=== PATIENT | female | born 1990 | race Caucasian/White ===

== ENCOUNTER → 2016-08-20 22:42 | Observation (INO) ==
[2016-08-20 21:05] LABS: Bilirubin,Urine Negative (Negative); Blood,Urine Negative (Negative); Clarity,Urine Cloudy (Clear); Color,Urine Yellow (Yellow); Glucose,Urine (UA) Normal (Normal); Ketones,Urine Negative (Negative); Leukocyte Esterase,Urine Large (Negative); Nitrite,Urine Negative (Negative); PH,Urine 6.5 pH Units (5.0-8.0); Protein,Urine Negative (Neg-Trace); Specific Gravity,Urine 1.012 (1.010-1.025); Urobilinogen,Urine Normal (Normal)
[2016-08-20 21:07] LABS: Bacteria,Urine Moderate per hpf (None-Few); Hyaline Casts,Urine None Seen per lpf (None-Few); RBC,Urine 0-3 per hpf (0-3); Squamous Epithelial Cell,Urine Many per lpf (None-Few); WBC,Urine 15-30 per hpf (0-3)
--- NOTE | 2016-08-20 21:12 | OB/GYN Progress Note ---
Date of Encounter: 08/20/16 Time of Encounter: 21:04 - Assessment and Plan (1) Zofia infection of genital region Current Visit: Yes Status: Acute + zofia on wet prep. Plan for terazol cream on discharge. (2) 35 weeks gestation of Current Visit: Yes Status: Acute NST reactive. SVE closed. Discharge home with precautions and rx for terazol cream. Will call pt with GC/chlam and urine culture results if positive. (3) NST (non-stress test) reactive Current Visit: Yes Status: Acute Subjective - Subjective Interval history: 26 year-old presenting via ambulance with c/o contraction pain and discharge. She reports cramping/sharp pain in her upper abdomen that lasted 20 minutes earlier today. She states the pain is better now. SHe also reports thick , green vaginal discharge that has been present for quite a while and causes itching and burning. Good FM Antepartum ROS: movement normal, contractions, no loss of fluid, no vaginal bleeding Objective - Vital Signs Vital Signs: Intake and Output 08/20/16 08/20/16 08/20/16 07:59 15:59 23:59 Other: Weight 107.955 kg Patient Weight 08/20/16 23:59 Weight 107.955 kg - Exam FHR: category 1 FHR comments: NST reactive 150BPM Abdomen: Present: soft, gravid. Absent: tenderness Uterus: Absent: tenderness Cervical dilation: closed per RN Comments: SSE with copious amount thick, green discharge in vault. No pooling of fluid. External labia and inner thighs excoriated. Wet prep + yeast, + clue cells
[2016-08-20 21:57] LABS: Candida DNA ***DETECTED*** (Not Detect); Gardnerella DNA Not Detected (Not Detect); Trichomonas DNA Not Detected (Not Detect)
== END | disposition home or self-care (01) ==
LOC: 1NENULAB

== ENCOUNTER 2018-08-24 20:09 | Inpatient (IN) ==
[2018-08-24 21:21] LABS: Basophils # 0.1 K/mcL (0.0-0.2); Basophils % 0.6 %; Eosinophils # 0.3 K/mcL (0.0-0.6); Eosinophils % 3.2 %; Hematocrit 40.4 % (35.3-44.9); Hemoglobin 12.5 g/dL (11.5-15.4); Immature Granulocytes % 0.4 % (0-4); Lymphocytes # 2.9 K/mcL (0.6-4.6); Lymphocytes % 27.5 %; Mean Corpuscular HGB Conc 30.9 g/dL (31.6-35.5); Mean Corpuscular Hemoglobin 25.4 pg (28.0-33.3); Mean Corpuscular Volume 81.9 fL (83.0-100.0); Mean Platelet Volume 10.4 fL (9.4-12.4); Monocytes # 0.5 K/mcL (0.0-1.3); Monocytes % 4.9 %; Neutrophils # 6.7 K/mcL (1.6-8.9); Platelet Count 264 K/mcL (140-400); Red Blood Count 4.93 M/mcL (3.82-4.97); Red Cell Distribution Width 14.4 % (11.5-14.5); Segmented Neutrophils % 63.4 %
[2018-08-24 21:25] LABS: Acetaminophen < 10 mcg/mL (10-20); BUN/Creatinine Ratio 15 (6-26); Blood Urea Nitrogen 11 mg/dL (6-20); Calcium 10.3 mg/dL (8.6-10.3); Carbon Dioxide 27 mEq/L (23-29); Chloride 105 mEq/L (98-107); Ethanol < 10 mg/dL (Less than 10); Glucose 102 mg/dL (70-105); Osmolality,Calculated 292 (280-300); Potassium 4.2 mEq/L (3.5-5.1); Salicylate < 2.5 mg/dL (15.0-30.0); Sodium 141 mEq/L (136-145); eGFR For Non-African Americans > 60 (> 60)
[2018-08-24 21:31] LABS: Bilirubin,Urine Negative (Negative); Blood,Urine Negative (Negative); Clarity,Urine Cloudy (Clear); Color,Urine Yellow (Yellow); Glucose,Urine (UA) Normal (Normal); Ketones,Urine Negative (Negative); Leukocyte Esterase,Urine Small (Negative); Nitrite,Urine Negative (Negative); Protein,Urine Negative (Neg-Trace); Specific Gravity,Urine 1.016 (1.010-1.025); Urobilinogen,Urine Normal (Normal)
[2018-08-24 21:35] LABS: Bacteria,Urine Many per hpf (None-Few); Hyaline Casts,Urine Few per lpf (None-Few); Squamous Epithelial Cell,Urine Many per lpf (None-Few); WBC,Urine 15-30 per hpf (0-3)
[2018-08-24 21:40] LABS: Amphetamine Screen,Urine Negative ng/mL (Cutoff=1000); Barbiturate Screen,Urine Negative ng/mL (Cutoff=200); Benzodiazepines Screen,Urine Negative ng/mL (Cutoff=200); Cannabinoid Screen,Urine Negative ng/mL (Cutoff = 50); Cocaine Screen,Urine Negative ng/mL (Cutoff= 300); Opiate Screen,Urine Negative ng/mL (Cutoff=300); Phencyclidine Screen,Urine Negative ng/mL (Cutoff=25)
--- NOTE | 2018-08-24 22:13 | Emergency Department Note ---
Disposition Clinical Impression: Suicidal ideation Disposition: Still a Patient Referrals: NONE,PCP [Primary Care Provider] - General Adult HPI - General Chief complaint: ED Psychiatric Symptoms Stated complaint: SI Time Seen by Provider: 08/24/18 20:36 Source: patient Limitations: no limitations - History of Present Illness Pain Scale: 0 - Related Data Home Medications Medication Instructions Recorded Confirmed Propranolol [Inderal] 10 mg PO TID 04/15/18 08/24/18 Depression Medication 08/24/18 Allergies Allergy/AdvReac Type Severity Reaction Status Date / Time Amoxicillin [From Augmentin] Allergy See Verified 08/24/18 20:24 Comments clavulanic acid Allergy See Verified 08/24/18 20:24 [From Augmentin] Comments Past Medical History - Past Medical History Medical history: Reports: hypertension Surgical history: Reports: non-contributory Psychiatric history: Reports: depression 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 - Social History Smoking Status: Never smoker Smokeless Tobacco Status: No Alcohol use: Reports: none Drug use: Reports: none Physical Exam - General Limitations: no limitations General appearance: alert, appears intoxicated Course Vital Signs Temperature 98.6 F 08/24/18 20:10 Pulse Rate 85 08/24/18 20:10 Respiratory Rate 20 08/24/18 20:10 Blood Pressure 150/105 08/24/18 20:10 O2 Sat by Pulse Oximetry 100 08/24/18 20:10 Temperature 98.6 F 08/24/18 20:10 Pulse Rate 85 08/24/18 20:10 Respiratory Rate 20 08/24/18 20:10 Blood Pressure 150/105 08/24/18 20:10 O2 Sat by Pulse Oximetry 100 08/24/18 20:10 Oxygen Delivery Oxygen Delivery Room Air Medical Decision Making - Lab Data Result diagrams: 08/24/18 20:56 08/24/18 20:56 Lab Results 08/24/18 08/24/18 08/24/18 Range/Units 20:39 20:39 20:39 WBC (4.3-11.1) K/mcL RBC (3.82-4.97) M/mcL Hgb (11.5-15.4) g/dL Hct (35.3-44.9) % MCV (83.0-100.0) fL MCH (28.0-33.3) pg MCHC (31.6-35.5) g/dL RDW (11.5-14.5) % Plt Count (140-400) K/mcL MPV (9.4-12.4) fL Immature Gran % (0-4) % Seg Neutrophils % % Lymphocytes % % Monocytes % % Eosinophils % % Basophils % % Neutrophils # (1.6-8.9) K/mcL Lymphocytes # (0.6-4.6) K/mcL Monocytes # (0.0-1.3) K/mcL Eosinophils # (0.0-0.6) K/mcL Basophils # (0.0-0.2) K/mcL Sodium (136-145) mEq/L Potassium (3.5-5.1) mEq/L Chloride (98-107) mEq/L Carbon Dioxide (23-29) mEq/L BUN (6-20) mg/dL Creatinine (0.60-1.20) mg/dL Est GFR ( Amer) (> 60) Est GFR (Non-Af Amer) (> 60) BUN/Creatinine Ratio (6-26) Glucose (70-105) mg/dL Calculated Osmolality (280-300) Calcium (8.6-10.3) mg/dL Urine Color Yellow (Yellow) Urine Clarity Cloudy A (Clear) Urine pH 6.0 (5.0-8.0) pH Units Ur Specific [place] 1.016 (1.010-1.025) Urine Protein Negative (Neg-Trace) mg/dL Urine Glucose (UA) Normal (Normal) mg/dL Urine Ketones Negative (Negative) mg/dL Urine Blood Negative (Negative) Urine Nitrite Negative (Negative) Urine Bilirubin Negative (Negative) Urine Urobilinogen Normal (Normal) mg/dL Ur Leukocyte Esterase Small H (Negative) Urine Microscopic RBC 5-15 H (0-3) per hpf Urine Microscopic WBC 15-30 H (0-3) per hpf Ur Squamous Epith Cells Many H (None-Few) per lpf Urine Bacteria Many H (None-Few) per hpf Hyaline Casts Few (None-Few) per lpf Urine Test Negative (Negative) Salicylates (15.0-30.0) mg/dL Urine Opiates Screen Negative (Bwxtgk=000) ng/mL Acetaminophen (10-20) mcg/mL Ur Barbiturates Screen Negative (Yisxhv=061) ng/mL Ur Phencyclidine Scrn Negative (Cutoff=25) ng/mL Ur Amphetamines Screen Negative (Nrhgue=4718) ng/mL U Benzodiazepines Scrn Negative (Dihfdj=571) ng/mL Urine Cocaine Screen Negative (Cutoff= 300) ng/mL U Marijuana (THC) Screen Negative (Cutoff = 50) ng/mL Ur Drug Screen Interp See Below Ethyl Alcohol (Less than 10) mg/dL 08/24/18 08/24/18 Range/Units 20:56 20:56 WBC 10.6 (4.3-11.1) K/mcL RBC 4.93 (3.82-4.97) M/mcL Hgb 12.5 (11.5-15.4) g/dL Hct 40.4 (35.3-44.9) % MCV 81.9 L (83.0-100.0) fL MCH 25.4 L (28.0-33.3) pg MCHC 30.9 L (31.6-35.5) g/dL RDW 14.4 (11.5-14.5) % Plt Count 264 (140-400) K/mcL MPV 10.4 (9.4-12.4) fL Immature Gran % 0.4 (0-4) % Seg Neutrophils % 63.4 % Lymphocytes % 27.5 % Monocytes % 4.9 % Eosinophils % 3.2 % Basophils % 0.6 % Neutrophils # 6.7 (1.6-8.9) K/mcL Lymphocytes # 2.9 (0.6-4.6) K/mcL Monocytes # 0.5 (0.0-1.3) K/mcL Eosinophils # 0.3 (0.0-0.6) K/mcL Basophils # 0.1 (0.0-0.2) K/mcL Sodium 141 (136-145) mEq/L Potassium 4.2 (3.5-5.1) mEq/L Chloride 105 (98-107) mEq/L Carbon Dioxide 27 (23-29) mEq/L BUN 11 (6-20) mg/dL Creatinine 0.72 (0.60-1.20) mg/dL Est GFR ( Amer) > 60 (> 60) Est GFR (Non-Af Amer) > 60 (> 60) BUN/Creatinine Ratio 15 (6-26) Glucose 102 (70-105) mg/dL Calculated Osmolality 292 (280-300) Calcium 10.3 (8.6-10.3) mg/dL Urine Color (Yellow) Urine Clarity (Clear) Urine pH (5.0-8.0) pH Units Ur Specific [place] (1.010-1.025) Urine Protein (Neg-Trace) mg/dL Urine Glucose (UA) (Normal) mg/dL Urine Ketones (Negative) mg/dL Urine Blood (Negative) Urine Nitrite (Negative) Urine Bilirubin (Negative) Urine Urobilinogen (Normal) mg/dL Ur Leukocyte Esterase (Negative) Urine Microscopic RBC (0-3) per hpf Urine Microscopic WBC (0-3) per hpf Ur Squamous Epith Cells (None-Few) per lpf Urine Bacteria (None-Few) per hpf Hyaline Casts (None-Few) per lpf Urine Test (Negative) Salicylates < 2.5 L (15.0-30.0) mg/dL Urine Opiates Screen (Wjsvpz=666) ng/mL Acetaminophen < 10 L (10-20) mcg/mL Ur Barbiturates Screen (Mhpjlu=653) ng/mL Ur Phencyclidine Scrn (Cutoff=25) ng/mL Ur Amphetamines Screen (Nvunww=9146) ng/mL U Benzodiazepines Scrn (Aupccc=204) ng/mL Urine Cocaine Screen (Cutoff= 300) ng/mL U Marijuana (THC) Screen (Cutoff = 50) ng/mL Ur Drug Screen Interp Ethyl Alcohol < 10 (Less than 10) mg/dL Attestation Statement - Attestation Attestation: I examined this patient and my medical decision-making was reviewed with the Resident Physician. I agree with the documented findings, disposition and treatment plan as described except to the extent set forth below. Suicidal with a plan. No physical complaints. Awaiting psych eval for placement.
--- NOTE | 2018-08-24 22:22 | Emergency Department Note ---
Disposition Clinical Impression: Suicidal ideation Disposition: Admitted As Inpatient Condition: Undetermined Time of Disposition: 01:44 Psych HPI - General Chief Complaint: ED Psychiatric Symptoms Stated Complaint: SI Time Seen by Provider: 08/24/18 20:36 Source: patient Mode of arrival: private vehicle Limitations: no limitations Nursing Notes Reviewed: Yes Vital Signs Reviewed: Yes - History of Present Illness HPI Narrative: 28-year-old female with significant home stressors involving her kids and unemployment that reports to the emergency department with concerns that she wants to end her life. Patient denies any prior suicide attempts, any prior psychiatric admissions, she denies any homicidal ideations, she denies auditory and visual hallucinations. Patient states that she planned to overdose on pills, or slit her wrists, or drive her car off a bridge. Patient has tried a number of psychiatric medications without relief, she has also tried multiple different doses of the psychiatric medications. She denies any illicit drug use or any drugs not prescribed to her. - Related Data Home Medications Medication Instructions Recorded Confirmed Propranolol [Inderal] 20 mg PO TID 08/25/18 08/25/18 Venlafaxine HCl [Venlafaxine HCl 75 mg PO DAILY 08/25/18 08/25/18 ER] Allergies Allergy/AdvReac Type Severity Reaction Status Date / Time Amoxicillin [From Augmentin] Allergy See Verified 08/25/18 07:50 Comments clavulanic acid Allergy See Verified 08/25/18 07:50 [From Augmentin] Comments Review of Systems: All systems ED: reviewed and negative except as stated. Constitutional: Denies: fever, chills ENT ED: Denies: ear pain, throat pain Cardiovascular: Denies: chest pain, palpitations Respiratory: Denies: cough, dyspnea Gastrointestinal: Denies: abdominal pain, nausea, vomiting, diarrhea, constipation Genitourinary: Denies: urgency, dysuria, frequency Musculoskeletal: Denies: back pain, neck pain Integumentary: Denies: rash, abrasion Neurological: Denies: headache, weakness, numbness, paresthesias Psychiatric: Denies: anxiety, depression Past Medical History - Past Medical History Attestation: Yes The following information was validated with the patient. 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 Appears anxious, tearful. Well developed, well nourished. Head: atraumatic, normocephalic. ENT: No conjunctival injection, no scleral icterus. PERRLA. EOMI. Oropharynx non- erythematous. mucous membranes moist. Neuro: No focal deficits, no speech deficit, no facial droop, mentating well. BUE/BLE Str 5/5. Pulm: Lungs CTAB A/P. No wheezes, rales, ronchi. Cardio: RRR no m/r/g. Chest not tender to palpation. Abd: Soft, non-distended. Normoactive bowel sounds. Non-tender to palpation. No guarding. Non rigid. Extremities: Radial pulses 2+ miranda, dorsalis pedis/posterior tibialis 2+ miranda. No LE edema. No cyanosis, clubbing. Skin: warm, dry, intact. No rashes. Psych: Appropriate mood and affect. Answers questions appropriately. Cooperative with exam. - General Limitations: no limitations General appearance: alert Course Vital Signs Temperature 98.6 F 08/24/18 20:10 Pulse Rate 85 08/24/18 20:10 Respiratory Rate 20 08/24/18 20:10 Blood Pressure 150/105 08/24/18 20:10 O2 Sat by Pulse Oximetry 100 08/24/18 20:10 Temperature 98.6 F 08/24/18 20:10 Pulse Rate 85 08/24/18 20:10 Respiratory Rate 20 08/24/18 20:10 Blood Pressure 150/105 08/24/18 20:10 O2 Sat by Pulse Oximetry 100 08/24/18 20:10 Oxygen Delivery Oxygen Delivery Room Air Psych - MDM Narrative Medical decision making narrative: Patient had a medical screening exam as well as lab work and urinalysis which did not show any remarkable findings. Patient was evaluated at bedside by psychiatric nurse. Psychiatric nurse and patient decided that patient could benefit from further inpatient treatment. Emergency application for admission was completed and is available on the chart. Patient was given an opportunity to ask questions at bedside and all of their concerns were addressed. Patient verbalized understanding and agreement with plan of care. Pt remained stable while in the department. - Lab Data Result diagrams: 08/24/18 20:56 08/24/18 20:56 Lab Results 08/24/18 08/24/18 08/24/18 Range/Units 20:39 20:39 20:39 WBC (4.3-11.1) K/mcL RBC (3.82-4.97) M/mcL Hgb (11.5-15.4) g/dL Hct (35.3-44.9) % MCV (83.0-100.0) fL MCH (28.0-33.3) pg MCHC (31.6-35.5) g/dL RDW (11.5-14.5) % Plt Count (140-400) K/mcL MPV (9.4-12.4) fL Immature Gran % (0-4) % Seg Neutrophils % % Lymphocytes % % Monocytes % % Eosinophils % % Basophils % % Neutrophils # (1.6-8.9) K/mcL Lymphocytes # (0.6-4.6) K/mcL Monocytes # (0.0-1.3) K/mcL Eosinophils # (0.0-0.6) K/mcL Basophils # (0.0-0.2) K/mcL Sodium (136-145) mEq/L Potassium (3.5-5.1) mEq/L Chloride (98-107) mEq/L Carbon Dioxide (23-29) mEq/L BUN (6-20) mg/dL Creatinine (0.60-1.20) mg/dL Est GFR ( Amer) (> 60) Est GFR (Non-Af Amer) (> 60) BUN/Creatinine Ratio (6-26) Glucose (70-105) mg/dL Calculated Osmolality (280-300) Calcium (8.6-10.3) mg/dL Urine Color Yellow (Yellow) Urine Clarity Cloudy A (Clear) Urine pH 6.0 (5.0-8.0) pH Units Ur Specific [place] 1.016 (1.010-1.025) Urine Protein Negative (Neg-Trace) mg/dL Urine Glucose (UA) Normal (Normal) mg/dL Urine Ketones Negative (Negative) mg/dL Urine Blood Negative (Negative) Urine Nitrite Negative (Negative) Urine Bilirubin Negative (Negative) Urine Urobilinogen Normal (Normal) mg/dL Ur Leukocyte Esterase Small H (Negative) Urine Microscopic RBC 5-15 H (0-3) per hpf Urine Microscopic WBC 15-30 H (0-3) per hpf Ur Squamous Epith Cells Many H (None-Few) per lpf Urine Bacteria Many H (None-Few) per hpf Hyaline Casts Few (None-Few) per lpf Urine Test Negative (Negative) Salicylates (15.0-30.0) mg/dL Urine Opiates Screen Negative (Luxzff=662) ng/mL Acetaminophen (10-20) mcg/mL Ur Barbiturates Screen Negative (Ktruae=165) ng/mL Ur Phencyclidine Scrn Negative (Cutoff=25) ng/mL Ur Amphetamines Screen Negative (Ocaidz=3387) ng/mL U Benzodiazepines Scrn Negative (Fhuced=823) ng/mL Urine Cocaine Screen Negative (Cutoff= 300) ng/mL U Marijuana (THC) Screen Negative (Cutoff = 50) ng/mL Ur Drug Screen Interp See Below Ethyl Alcohol (Less than 10) mg/dL 08/24/18 08/24/18 Range/Units 20:56 20:56 WBC 10.6 (4.3-11.1) K/mcL RBC 4.93 (3.82-4.97) M/mcL Hgb 12.5 (11.5-15.4) g/dL Hct 40.4 (35.3-44.9) % MCV 81.9 L (83.0-100.0) fL MCH 25.4 L (28.0-33.3) pg MCHC 30.9 L (31.6-35.5) g/dL RDW 14.4 (11.5-14.5) % Plt Count 264 (140-400) K/mcL MPV 10.4 (9.4-12.4) fL Immature Gran % 0.4 (0-4) % Seg Neutrophils % 63.4 % Lymphocytes % 27.5 % Monocytes % 4.9 % Eosinophils % 3.2 % Basophils % 0.6 % Neutrophils # 6.7 (1.6-8.9) K/mcL Lymphocytes # 2.9 (0.6-4.6) K/mcL Monocytes # 0.5 (0.0-1.3) K/mcL Eosinophils # 0.3 (0.0-0.6) K/mcL Basophils # 0.1 (0.0-0.2) K/mcL Sodium 141 (136-145) mEq/L Potassium 4.2 (3.5-5.1) mEq/L Chloride 105 (98-107) mEq/L Carbon Dioxide 27 (23-29) mEq/L BUN 11 (6-20) mg/dL Creatinine 0.72 (0.60-1.20) mg/dL Est GFR ( Amer) > 60 (> 60) Est GFR (Non-Af Amer) > 60 (> 60) BUN/Creatinine Ratio 15 (6-26) Glucose 102 (70-105) mg/dL Calculated Osmolality 292 (280-300) Calcium 10.3 (8.6-10.3) mg/dL Urine Color (Yellow) Urine Clarity (Clear) Urine pH (5.0-8.0) pH Units Ur Specific [place] (1.010-1.025) Urine Protein (Neg-Trace) mg/dL Urine Glucose (UA) (Normal) mg/dL Urine Ketones (Negative) mg/dL Urine Blood (Negative) Urine Nitrite (Negative) Urine Bilirubin (Negative) Urine Urobilinogen (Normal) mg/dL Ur Leukocyte Esterase (Negative) Urine Microscopic RBC (0-3) per hpf Urine Microscopic WBC (0-3) per hpf Ur Squamous Epith Cells (None-Few) per lpf Urine Bacteria (None-Few) per hpf Hyaline Casts (None-Few) per lpf Urine Test (Negative) Salicylates < 2.5 L (15.0-30.0) mg/dL Urine Opiates Screen (Rbtdlp=470) ng/mL Acetaminophen < 10 L (10-20) mcg/mL Ur Barbiturates Screen (Kzrlyi=071) ng/mL Ur Phencyclidine Scrn (Cutoff=25) ng/mL Ur Amphetamines Screen (Wxzwgi=3949) ng/mL U Benzodiazepines Scrn (Nudcnl=747) ng/mL Urine Cocaine Screen (Cutoff= 300) ng/mL U Marijuana (THC) Screen (Cutoff = 50) ng/mL Ur Drug Screen Interp Ethyl Alcohol < 10 (Less than 10) mg/dL Psychiatric Medical Clearance - Medical Clearance Checklist Medical History: No Social History Section defined Current Vitals: Last Vital Signs Temp 98.6 F 08/24/18 20:10 Pulse 85 08/24/18 20:10 Resp 20 08/24/18 20:10 BP 150/105 08/24/18 20:10 Pulse Ox 100 08/24/18 20:10 Psychiatric Lab Panel: Drug Levels and Toxicity 08/24/18 08/24/18 20:39 20:56 Urine Opiates Screen Negative Acetaminophen < 10 L Ur Barbiturates Screen Negative Ur Phencyclidine Scrn Negative Ur Amphetamines Screen Negative U Benzodiazepines Scrn Negative Urine Cocaine Screen Negative U Marijuana (THC) Screen Negative Ethyl Alcohol < 10 Abnormal Labs: Abnormal lab results MCV 81.9 fL (83.0-100.0) L 08/24/18 20:56 MCH 25.4 pg (28.0-33.3) L 08/24/18 20:56 MCHC 30.9 g/dL (31.6-35.5) L 08/24/18 20:56 Cloudy (Clear) A 08/24/18 20:39 Ur Leukocyte Esterase Small (Negative) H 08/24/18 20:39 5-15 per hpf (0-3) H 08/24/18 20:39 15-30 per hpf (0-3) H 08/24/18 20:39 Ur Squamous Epith Cells Many per lpf (None-Few) H 08/24/18 20:39 Many per hpf (None-Few) H 08/24/18 20:39 Salicylates < 2.5 mg/dL (15.0-30.0) L 08/24/18 20:56 Acetaminophen < 10 mcg/mL (10-20) L 08/24/18 20:56 Statement of Medical Clearance: I have evaluated the patient, reviewed diagnostic information, and certify that the patient's medical condition is sufficiently stable that transfer to the psychiatric unit does not pose a significant risk of deterioration.
[2018-08-25] MEDS ORDERED: MOM Conc 10 ML UD.LIQ PO PRN (00:13)
[2018-08-25] MEDS ORDERED: *HR* LORazepam 2 MG/ML VIAL IM PRN (00:13)
[2018-08-25] MEDS ORDERED: Haloperidol Lactate 5 MG/ML VIAL IM PRN (00:13)
[2018-08-25] MEDS ORDERED: Mag Hydrox/Al Hydrox/Simeth 30 ML UDC PO PRN (00:13)
[2018-08-25] MEDS ORDERED: Acetaminophen 325 MG TABLET PO PRN (00:13)
[2018-08-25] MEDS ORDERED: *HR* LORazepam 1 MG TABLET PO PRN (00:13)
[2018-08-25] MEDS ORDERED: Ibuprofen 600 MG TABLET PO PRN (00:54)
[2018-08-25] MEDS: traZODone 50 MG TABLET PO PRN ×2 (01:02→21:55)
[2018-08-25] MEDS: hydrOXYzine pamoate 25 MG CAPSULE PO PRN ×2 (01:03→21:55)
--- NOTE | 2018-08-25 07:01 | Psychiatry History & Physical ---
Date of Encounter: 08/25/18 Time of Encounter: 06:58 History of Present Illness Patient Stated Chief Complaint: "I want to kill myself" Medicare Admission Attestation: For traditional Medicare patients the provided hospital inpatient services are reasonable and necessary and in the case of services not specified as inpatient-only under 42 CFR 419.22 (n), that they are appropriately provided as inpatient services in accordance 42 CFR 412.3. For Critical Access Hospital the patient may reasonably be expected to be discharged or transferred to a hospital within 96 hours after admission to the Critical Access Hospital. Admitted From: Emergency Dept Plans for Post Hospital Care: Home History of Present Illness: Ms. Morales is a 28 year old female with significant home stressors involving her kids and unemployment that reports to the emergency department with concerns that she wants to end her life. Patient denies any prior suicide attempts, any prior psychiatric admissions, she denies any homicidal ideations, she denies auditory and visual hallucinations. Patient states that she planned to overdose on pills, or slit her wrists, or drive her car off a bridge. She said after she dropped her kids off she thought about going back out in the car to kill herself on the bridge. Patient has tried a number of psychiatric medications without relief, she has also tried multiple different doses of the psychiatric medications. She denies any illicit drug use or any drugs not prescribed to her. She reports sad mood, decreased interest, feelings of guilt and worthlessness, low energy, decreased concentration and hopelessness. She continues to have suicidal thoughts with multiple plans. She has no thoughts of harming her children or others. She reports some hypomanic symptoms in the past of elevated and irritable mood and decreased need for sleep. She reports auditory hallucinations and visual hallucinations. No paranoia.. Past Med Surg Social Fam HX - Past Medical History Medical history: hypertension - Past Psychiatric History Psychiatric history: Reports: bipolar, depression. Denies: prior suicide attempt, previous psychiatric hospitalization Past psychiatric history details: She reports suicidal thoughts off and on since age of 11. No prior attempts. She has no prior psychiatric hospitalizations. She sees a counselor at [facility]. She has appointment coming up with a psychiatrist later in September. Family psychiatric history: Yes Family Psychiatric History Details: Her great great grandmother had schizophrenia, grandmother bipolar, and bipolar disorder and her brother methamphetamine and heroin use disorder. Family History of Suicide: Completed Family Suicide History Details: Cousin completed suicide - Past Surgical History Surgical History: non-contributory - Social History Smoking Status: Never smoker Smokeless Tobacco Status: No Alcohol use: none Drug use: none Occupational status: unemployed Current living situation: Home - Independent Activity Level: Independent ambulation Recent Out of Country Travel Within the Last 8 Weeks: No Exposure or Possible Exposure to Illness During Travel: No Additional social history: She lives with her and 3 children ages 8,4,2. She is a [id number] mother. Her works as a diesel truck technician and she says does not help much with the children. He she does have social support including a cheondoism family however most of her actual family is out of state which limits her ability to get help. - Family History Sister Family Member Ethnicity: Non- Living Status: Still Living Hx Family Cardiac Disorders: Yes (htn) Medications & Allergies Propranolol [Inderal] 20 mg PO TID 08/25/18 [History] Venlafaxine HCl [Venlafaxine HCl ER] 75 mg PO DAILY 08/25/18 [History] Allergy/AdvReac Type Severity Reaction Status Date / Time Amoxicillin [From Augmentin] Allergy See Verified 08/25/18 07:50 Comments clavulanic acid Allergy See Verified 08/25/18 07:50 [From Augmentin] Comments Review of Systems Constitutional: Denies: fever Eyes: Denies: eye pain Ears, Nose, Throat: Denies: ear pain Cardiovascular: Denies: chest pain Respiratory: Denies: cough Gastrointestinal: Denies: abdominal pain Genitourinary female: Denies: urgency Musculoskeletal: Denies: back pain Integumentary: Denies: rash Neurological: Denies: headache Psychiatric: Reports: depression, abnormal sleep pattern, suicidal ideation, change in appetite, auditory hallucinations, visual hallucinations, anhedonia, hopelessness. Denies: homicidal ideation Endocrine: Reports: fatigue Hematologic/Lymphatic: Denies: easy bleeding Allergic/Immunologic: Denies: facial swelling Exam - HEENT Head exam IM: Present: atraumatic Eye exam IM: Present: normal appearance ENT exam IM: Present: mucous membranes moist - Neurological Neurological exam: Present: CN II-XII intact - Respiratory Respiratory exam IM: Absent: respiratory distress - GI/Abdominal GI/Abdominal exam IM: Present: no peritoneal signs - Extremities Extremities exam IM: Present: full ROM - Skin Skin exam IM: Absent: cyanosis - Constitutional Vitals: Temp Pulse Resp BP Pulse Ox 98.5 F 85 16 127/90 100 08/25/18 00:13 08/25/18 00:13 08/25/18 00:13 08/25/18 00:13 08/24/18 20:10 General appearance: age & developmentally appropriate, well-groomed, well- nourished - Musculoskeletal Gait: normal Station: relaxed Strength & Tone: normal for patient - Psychiatric Patient Orientation: Yes Person, Yes Time, Yes Place, Yes Circumstance Level of alertness: Alert Behavior: tearful Psychomotor activity: Slowed Eye Contact: Minimal Contact Mood Description: Depressed Patient description of mood: Depressed Affect description: dysphoric Speech Volume: Soft/Quiet Speech pattern: slowed Language & Vocabulary: consistent with education Thought Process: Linear, Goal Oriented Thought Content: Yes Suicidal ideation, No Homicidal ideation Perceptual Disturbances: Yes Auditory hallucinations, Yes Visual hallucinations Attention Span Ability: Capable of Focused Attention Memory Description: Grossly Intact Patient Reliability: Reliable Historian Fund of knowledge: Yes abstraction ability, Yes average, Yes aware of current events Intelligence Estimate: Average Judgment: Limited Insight: Minimal Results - Drug Levels and Toxicology Drug Levels and Toxicology: Drug Levels and Toxicity 08/24/18 08/24/18 20:39 20:56 Urine Opiates Screen Negative Acetaminophen < 10 L Ur Barbiturates Screen Negative Ur Phencyclidine Scrn Negative Ur Amphetamines Screen Negative U Benzodiazepines Scrn Negative Urine Cocaine Screen Negative U Marijuana (THC) Screen Negative Ethyl Alcohol < 10 - Labs Labs: Laboratory Last Values WBC 10.6 K/mcL (4.3-11.1) 08/24/18 20:56 RBC 4.93 M/mcL (3.82-4.97) 08/24/18 20:56 Hgb 12.5 g/dL (11.5-15.4) 08/24/18 20:56 Hct 40.4 % (35.3-44.9) 08/24/18 20:56 MCV 81.9 fL (83.0-100.0) L 08/24/18 20:56 MCH 25.4 pg (28.0-33.3) L 08/24/18 20:56 MCHC 30.9 g/dL (31.6-35.5) L 08/24/18 20:56 RDW 14.4 % (11.5-14.5) 08/24/18 20:56 Plt Count 264 K/mcL (140-400) 08/24/18 20:56 MPV 10.4 fL (9.4-12.4) 08/24/18 20:56 Immature Gran % 0.4 % (0-4) 08/24/18 20:56 Seg Neutrophils % 63.4 % 08/24/18 20:56 27.5 % 08/24/18 20:56 4.9 % 08/24/18 20:56 3.2 % 08/24/18 20:56 0.6 % 08/24/18 20:56 6.7 K/mcL (1.6-8.9) 08/24/18 20:56 2.9 K/mcL (0.6-4.6) 08/24/18 20:56 0.5 K/mcL (0.0-1.3) 08/24/18 20:56 0.3 K/mcL (0.0-0.6) 08/24/18 20:56 0.1 K/mcL (0.0-0.2) 08/24/18 20:56 Sodium 141 mEq/L (136-145) 08/24/18 20:56 Potassium 4.2 mEq/L (3.5-5.1) 08/24/18 20:56 Chloride 105 mEq/L (98-107) 08/24/18 20:56 Carbon Dioxide 27 mEq/L (23-29) 08/24/18 20:56 BUN 11 mg/dL (6-20) 08/24/18 20:56 0.72 mg/dL (0.60-1.20) 08/24/18 20:56 Est GFR ( Amer) > 60 (> 60) 08/24/18 20:56 Est GFR (Non-Af Amer) > 60 (> 60) 08/24/18 20:56 15 (6-26) 08/24/18 20:56 Glucose 102 mg/dL (70-105) 08/24/18 20:56 292 (280-300) 08/24/18 20:56 Calcium 10.3 mg/dL (8.6-10.3) 08/24/18 20:56 Yellow (Yellow) 08/24/18 20:39 Cloudy (Clear) A 08/24/18 20:39 6.0 pH Units (5.0-8.0) 08/24/18 20:39 Ur Specific [place] 1.016 (1.010-1.025) 08/24/18 20:39 Negative mg/dL (Neg-Trace) 08/24/18 20:39 Normal mg/dL (Normal) 08/24/18 20:39 Negative mg/dL (Negative) 08/24/18 20:39 Negative (Negative) 08/24/18 20:39 Negative (Negative) 08/24/18 20:39 Negative (Negative) 08/24/18 20:39 Normal mg/dL (Normal) 08/24/18 20:39 Ur Leukocyte Esterase Small (Negative) H 08/24/18 20:39 5-15 per hpf (0-3) H 08/24/18 20:39 15-30 per hpf (0-3) H 08/24/18 20:39 Ur Squamous Epith Cells Many per lpf (None-Few) H 08/24/18 20:39 Many per hpf (None-Few) H 08/24/18 20:39 Hyaline Casts Few per lpf (None-Few) 08/24/18 20:39 Negative (Negative) 08/24/18 20:39 Salicylates < 2.5 mg/dL (15.0-30.0) L 08/24/18 20:56 Negative ng/mL (Bdpzdy=273) 08/24/18 20:39 Acetaminophen < 10 mcg/mL (10-20) L 08/24/18 20:56 Ur Barbiturates Screen Negative ng/mL (Ejlaig=257) 08/24/18 20:39 Ur Phencyclidine Scrn Negative ng/mL (Cutoff=25) 08/24/18 20:39 Ur Amphetamines Screen Negative ng/mL (Gogiue=6830) 08/24/18 20:39 U Benzodiazepines Scrn Negative ng/mL (Hbfaib=270) 08/24/18 20:39 Negative ng/mL (Cutoff= 300) 08/24/18 20:39 U Marijuana (THC) Screen Negative ng/mL (Cutoff = 50) 08/24/18 20:39 Ur Drug Screen Interp See Below 08/24/18 20:39 Ethyl Alcohol < 10 mg/dL (Less than 10) 08/24/18 20:56 Assessment and Plan (1) Unspecified mood [affective] disorder Current visit: Yes Status: Acute Plan: Admit inpatient for safety and stabilization, Close observation, Suicide Precautions per unit protocol, Encourage participation in unit milieu, Group Therapy, Monitor sleep, Monitor appetite Additional Plan: Increase Effexor XR to 150 mg by mouth every morning. Add Seroquel 100 mg by mouth daily at bedtime for further mood stabilization and improvement of her auditory and visual hallucinations. Encourage group attendance. Reviewed Interval hx Review any current labs Pt had an opportunity to ask questions and discuss current treatment plan. Supportive therapy was provided Pt encouraged to consider group or individual therapy Pt was in agreement with treatment plan. Pt was educated on the risks benefits and side effects of current medications and alternatives as well as the risks and benefits of no medication. AIMS = 0 lipids and [id number] Risks, benefits, side effects, alternatives discussed w/pt: Yes Patient agreeable to treatment: Yes Plans for Post Hospital Care: Home Estimated Length of Stay (Days): 2
[2018-08-25] MEDS: Venlafaxine XR (24 HR) 150 MG CAP.ER.24H PO SCH (10:55)
[2018-08-26] MEDS: Venlafaxine XR (24 HR) 150 MG CAP.ER.24H PO SCH (09:49)
--- NOTE | 2018-08-26 09:49 | Psychiatry Progress Note ---
Date of Encounter: 08/26/18 Time of Encounter: 09:47 Subjective Interval history: Patient says she had a good visit yesterday with both her associate programmer analyst and her . She said her associate programmer analyst spoke to her and helped him understand what she is dealing with with a mental illness and he is going to be more supportive of her moving forward. She was more bright and smiling more. No active suicidal thoughts, intentions, or plans. Review of Systems Psychiatric: Reports: depression. Denies: homicidal ideation Results - Vital Signs Vital Signs: Temp Pulse Resp BP Pulse Ox 97.6 F 78 18 141/77 99 08/25/18 21:00 08/25/18 21:00 08/25/18 21:00 08/25/18 21:00 08/25/18 21:00 Assessment and Plan (1) Unspecified mood [affective] disorder Current visit: Yes Status: Acute Plan: Continue hospitalization, Close observation, Suicide Precautions per unit protocol, Encourage participation in unit milieu, Group Therapy, Monitor sleep, Monitor appetite Additional Plan: Continue current medications. Encourage groups. Therapist working on discharge planning. Risks, benefits, side effects, alternatives discussed w/pt: Yes Patient agreeable to treatment: Yes Consult Discharge Plan - Plan Referrals: NONE,PCP [Primary Care Provider] - Psychiatry Exam - Constitutional Vitals: Temp Pulse Resp BP Pulse Ox 97.6 F 78 18 141/77 99 08/25/18 21:00 08/25/18 21:00 08/25/18 21:00 08/25/18 21:00 08/25/18 21:00 General appearance: age & developmentally appropriate, well-groomed, well- nourished - Musculoskeletal Gait: normal Station: relaxed Strength & Tone: normal for patient - Psychiatric Patient Orientation: Yes Person, Yes Time, Yes Place Level of alertness: Alert Behavior: calm, cooperative Psychomotor activity: Normal Eye Contact: Maintains Eye Contact Mood Description: Depressed (Less) Patient description of mood: Better Affect description: congruent with mood, dysphoric Speech Volume: Normal Speech pattern: normal rate, normal rhythm, normal tone, fluent, spontaneous Language & Vocabulary: consistent with education Thought Process: Linear, Goal Oriented Thought Content: No Suicidal ideation, No Homicidal ideation, No Overt delusions Perceptual Disturbances: No Auditory hallucinations, No Visual hallucinations Attention Span Ability: Capable of Focused Attention Memory Description: Grossly Intact Patient Reliability: Reliable Historian Fund of knowledge: Yes abstraction ability, Yes aware of current events Intelligence Estimate: Average Judgment: Fair Insight: Partial
[2018-08-26] MEDS: traZODone 50 MG TABLET PO PRN (21:10)
[2018-08-26] MEDS: hydrOXYzine pamoate 25 MG CAPSULE PO PRN (21:10)
--- NOTE | 2018-08-27 08:01 | Discharge Summary ---
Date of Encounter: 08/27/18 Time of Encounter: 07:30 Diagnosis - Discharge Diagnosis (1) Unspecified mood [affective] disorder Status: Acute Medications - Discharge Medications Prescriptions: Venlafaxine XR (24 HR) [Effexor Xr] 150 mg PO DAILY #30 cap.er.24h hydrOXYzine pamoate [HydrOXYzine Pamoate] 25 mg PO TID PRN #45 capsule PRN Reason: Anxiety Quetiapine Fumarate [Seroquel] 100 mg PO HS #30 tablet traZODone [TraZODone] 50 mg PO HS PRN #30 tablet PRN Reason: Insomnia Propranolol [Inderal] 20 mg PO TID 08/25/18 [History] Quetiapine Fumarate [Seroquel] 100 mg PO HS #30 tablet 08/27/18 [Rx] Venlafaxine XR (24 HR) [Effexor Xr] 150 mg PO DAILY #30 cap.er.24h 08/27/18 [Rx] hydrOXYzine pamoate [HydrOXYzine Pamoate] 25 mg PO TID PRN #45 capsule 08/27/18 [Rx] traZODone [TraZODone] 50 mg PO HS PRN #30 tablet 08/27/18 [Rx] Allergy/AdvReac Type Severity Reaction Status Date / Time Amoxicillin [From Augmentin] Allergy See Verified 08/25/18 07:50 Comments clavulanic acid Allergy See Verified 08/25/18 07:50 [From Augmentin] Comments Results Procedures and tests throughout hospitalization: Completed Lab Orders Category Date Time Status Acetaminophen Stat Lab 08/24/18 20:56 Completed Basic Metabolic Panel Stat Lab 08/24/18 20:56 Completed Complete Blood Count [HEME] Stat Lab 08/24/18 20:56 Completed Drug Screen, Urine [UCHEM] Stat Lab 08/24/18 20:39 Completed Ethanol Stat Lab 08/24/18 20:56 Completed Test Result, Urine [URIN] Stat Lab 08/24/18 20:39 Completed Salicylate Stat Lab 08/24/18 20:56 Completed Urinalysis reflex Microscopic [URIN] Stat Lab 08/24/18 20:39 Completed Laboratory Results - last 72 hr 08/24/18 08/24/18 08/24/18 20:39 20:39 20:39 WBC RBC Hgb Hct MCV MCH MCHC RDW Plt Count MPV Immature Gran % Seg Neutrophils % Lymphocytes % Monocytes % Eosinophils % Basophils % Neutrophils # Lymphocytes # Monocytes # Eosinophils # Basophils # Sodium Potassium Chloride Carbon Dioxide BUN Creatinine Est GFR ( Amer) Est GFR (Non-Af Amer) BUN/Creatinine Ratio Glucose Calculated Osmolality Calcium Urine Color Yellow Urine Clarity Cloudy A Urine pH 6.0 Ur Specific [place] 1.016 Urine Protein Negative Urine Glucose (UA) Normal Urine Ketones Negative Urine Blood Negative Urine Nitrite Negative Urine Bilirubin Negative Urine Urobilinogen Normal Ur Leukocyte Esterase Small H Urine Microscopic RBC 5-15 H Urine Microscopic WBC 15-30 H Ur Squamous Epith Cells Many H Urine Bacteria Many H Hyaline Casts Few Urine Test Negative Salicylates Urine Opiates Screen Negative Acetaminophen Ur Barbiturates Screen Negative Ur Phencyclidine Scrn Negative Ur Amphetamines Screen Negative U Benzodiazepines Scrn Negative Urine Cocaine Screen Negative U Marijuana (THC) Screen Negative Ur Drug Screen Interp See Below Ethyl Alcohol 08/24/18 08/24/18 20:56 20:56 WBC 10.6 RBC 4.93 Hgb 12.5 Hct 40.4 MCV 81.9 L MCH 25.4 L MCHC 30.9 L RDW 14.4 Plt Count 264 MPV 10.4 Immature Gran % 0.4 Seg Neutrophils % 63.4 Lymphocytes % 27.5 Monocytes % 4.9 Eosinophils % 3.2 Basophils % 0.6 Neutrophils # 6.7 Lymphocytes # 2.9 Monocytes # 0.5 Eosinophils # 0.3 Basophils # 0.1 Sodium 141 Potassium 4.2 Chloride 105 Carbon Dioxide 27 BUN 11 Creatinine 0.72 Est GFR ( Amer) > 60 Est GFR (Non-Af Amer) > 60 BUN/Creatinine Ratio 15 Glucose 102 Calculated Osmolality 292 Calcium 10.3 Urine Color Urine Clarity Urine pH Ur Specific [place] Urine Protein Urine Glucose (UA) Urine Ketones Urine Blood Urine Nitrite Urine Bilirubin Urine Urobilinogen Ur Leukocyte Esterase Urine Microscopic RBC Urine Microscopic WBC Ur Squamous Epith Cells Urine Bacteria Hyaline Casts Urine Test Salicylates < 2.5 L Urine Opiates Screen Acetaminophen < 10 L Ur Barbiturates Screen Ur Phencyclidine Scrn Ur Amphetamines Screen U Benzodiazepines Scrn Urine Cocaine Screen U Marijuana (THC) Screen Ur Drug Screen Interp Ethyl Alcohol < 10 Provider Date of admission: 08/25/18 00:12 Primary care physician: PCP NONE Discharging clinician: Gemini Napoles Psychiatry Exam - Constitutional Vitals: Temp Pulse Resp BP Pulse Ox 97.7 F 75 16 117/83 100 08/26/18 20:34 08/26/18 20:34 08/26/18 20:34 08/26/18 20:34 08/26/18 20:34 General appearance: age & developmentally appropriate, well-groomed, well- nourished - Musculoskeletal Gait: normal Station: relaxed Strength & Tone: normal for patient - Psychiatric Patient Orientation: Yes Person, Yes Time, Yes Place Level of alertness: Alert Behavior: calm, cooperative Psychomotor activity: Normal Eye Contact: Maintains Eye Contact Mood Description: Euthymic/stable Patient description of mood: Good Affect description: congruent with mood, full range Speech Volume: Normal Speech pattern: normal rate, normal rhythm, normal tone, fluent, spontaneous Language & Vocabulary: consistent with education Thought Process: Linear, Goal Oriented Thought Content: No Suicidal ideation, No Homicidal ideation, No Overt delusions Perceptual Disturbances: No Auditory hallucinations, No Visual hallucinations Attention Span Ability: Capable of Focused Attention Memory Description: Grossly Intact Patient Reliability: Reliable Historian Fund of knowledge: Yes abstraction ability, Yes aware of current events Intelligence Estimate: Average Judgment: Good Insight: Full Hospital Course Hospital course: Ms. Morales is a 28 year old female who was admitted for depression, anxiety, mood lability, and suicidal thoughts. She had been feeling overwhelmed with caring for her children. Her Effexor was increased to 150 every morning and Seroquel 100 was added for further mood stabilization and to treat her insomnia. She was given as needed Vistaril for anxiety and trazodone for additional insomnia treatment. She spoke with her and her roll scale man and her roll scale man spoke with her and she feels he is going to be more supportive now of helping with the kids and understanding her mental health.Patient was educated of diagnosis and the risk-benefit side effects of this alternative treatment options and was monitored for responsiveness and side effects. Mood anxiety sleep and appetite interest improved as did future orientation. Self-harm thoughts subsided and mood stabilized. She said she occasionally heard voices or saw shadows when she first came in but this resolved. She had no thoughts of harming her children. Patient was able to attend both individual and group therapy sessions as well as meet with the psychiatrist daily and urged to discuss any medication or treatment issues or other concerns. The patient was educated primarily by verbal means about their diagnosis and manifestations in their life. The option for treatment including group and individual therapy programming was offered to the patient in addition to the use of medications with all their potential risks, benefits, and side effects as well as the risks of not taking medication and non-adhereance were discussed with the patient at length. The patient was given the opportunity to ask questions and was noted to participate in the treatment in the planning process. The patient felt ready and eager to be discharged from the inpatient psychiatric unit to continue on with treatment as an outpatient. The patient agreed that is they were safe for this disposition. The patient was considered to be able to participate in informed consent and decision making with respect to medical, legal, and financial issues of the time of discharge. At the time of discharge the patient adamantly denied any concerns for lethality including suicidal or homicidal thoughts ideations or plans and was future oriented toward ongoing mental health care. Time spent discussing smoking cessation with patient: 3 to 10 minutes (0) Does patient wish to continue nicotine replacement upon disc: No (Not applicable) - Time Spent with Patient Total time spent providing and/or coordinating discharge services: 25 Less than 30 minutes Specific discharge activities: Interval history reviewed. Available labs reviewed . Psychotherapy provided. Patient had an opportunity to ask questions a nd address concerns. Patient was in agreement with the treatment plan. The risks benefits and side effects of medications were discussed with the patient, including alternatives and treatment. The patient was educated on the abstaining from any alcohol or illicit substances, following up with all scheduled appointments, and taking all medications as prescribed. Assessment and Plan - Patient/Caregiver Discharge Instructions Activity: resume usual activities as tolerated Diet: regular diet Additional Instructions: Continue current medications. Follow up with outpatient mental health. Encourage continued therapy in a group or individual setting. The patient was discharged to home. - Follow up Plan Follow up with: NONE,PCP [Primary Care Provider] - Functional capacity at discharge: independent ambulation Overall status at discharge: Stable Disposition: Home, Self-Care Quality - Multiple Antipsychotics Patient discharged on 2 or more antipsychotic medications: No Procedures - Procedures Procedures: Medication Management, Crisis Stabilization, Supportive Therapy, Group Therapy, Psychoeducational Therapy
[2018-08-27] MEDS: Venlafaxine XR (24 HR) 150 MG CAP.ER.24H PO SCH (09:19)
[2018-08-27 09:29] VITALS: BP 110/82
== END 2018-08-27 09:35 | disposition home or self-care (01) | DRG 754 ==
LOC: EMEROOARM 20:09 → 1ANU 08-25 00:12
PROVIDERS: ADMIT Psychiatry & Neurology Psychiatry; ATTEND Psychiatry & Neurology Psychiatry